=== PATIENT | male | born 1990 | race Caucasian/White ===

== ENCOUNTER 2020-09-18 14:43 | Outpatient (CLI) | payer BC, SELFPAY ==
--- NOTE | 2020-09-18 | XRR_ITS ---
PROCEDURE INFORMATION: Exam: XR Thoracic Spine Exam date and time: 09/18/2020 12:00 AM Age: 30 years old Clinical indication: Pain in thoracic spine; Additional info: Chronic back pain TECHNIQUE: Imaging protocol: XR of the thoracic spine. Views: 3 views. COMPARISON: No relevant prior studies available. FINDINGS: Bones/joints: There is mild dextrocurvature of the thoracic spine. The normal thoracic kyphosis is preserved. Vertebral body heights are well maintained. No fracture identified. There is mild degenerative changes, manifested by tiny endplate osteophytes. Soft tissues: Unremarkable. XR/XR thoracic spine 3V* [id number] IMPRESSION: 1. No acute injury. 2. Minimal degenerative changes of the thoracic spine.
--- NOTE | 2020-09-18 | XRR_ITS ---
PROCEDURE INFORMATION: Exam: XR Lumbosacral Spine Exam date and time: 09/18/2020 12:00 AM Age: 30 years old Clinical indication: Low back pain; Additional info: Chronic back pain TECHNIQUE: Imaging protocol: XR of the lumbosacral spine. Views: 2 or 3 views. COMPARISON: No relevant prior studies available. FINDINGS: Bones/joints: No spine curvature seen. The normal lumbar lordosis is maintained, without listhesis. No fracture identified. Vertebral body heights are well preserved. There is minimal degenerative changes of the spine, manifested by tiny endplate osteophytes and mild facet joint arthrosis in the lower lumbar spine. Soft tissues: Unremarkable. XR/XR lumbar spine 2-3V* [id number] IMPRESSION: 1. No acute injury. 2. Minimal degenerative changes of the lumbar spine.
== END 2020-09-18 14:44 | disposition home or self-care (01) ==
LOC: RAD 14:49
PROVIDERS: PCP Family Medicine; Visit Provider Family Medicine
DX: M54.5 Low back pain (principal)
CPT/HCPCS: 72072; 72100

== ENCOUNTER 2020-10-27 14:12 | Outpatient (CLI) | payer BC, SELFPAY ==
--- NOTE | 2020-10-27 15:15 | MR_ITS ---
WS: [id number] MRI LUMBAR SPINE NONCONTRAST TECHNIQUE: Sagittal T1, T2 and STIR imaging. Axial T1 and T2 imaging. CLINICAL INFORMATION: LBP COMPARISON: None. FINDINGS: Normal lumbar alignment. No acute compression. No high-grade central canal stenosis. Mild disc bulgin g L5-S1. L1-L2: Normal. L2-L3: Normal L3-L4: Mild annular bulging. No significant spinal canal or foraminal narrowing. Mild facet arthropat hy. L4-L5: Mild annular bulging with slight effacement of ventral thecal sac. Slight narrowing of the lef t subarticular recess. Mild facet arthropathy. Spinal canal and foramen are patent. L5-S1: Mild disc bulging eccentric to the right slightly impinges the traversing right S1 nerve root. Mild right and no significant left foraminal narrowing. Mild facet arthropathy. Spinal canal is zapata nt. Visualized pelvic bony structures: Normal. Paravertebral soft tissues: Normal. MR/MR lumbar spine wo con* [id number] IMPRESSION: 1. Normal lumbar alignment. No acute compression. No high-grade central canal stenosis. 2. Right eccentric disc bulging L5-S1 impinges the traversing right S1 nerve r oot in the subarticular recess. Correlation for right S1 nerve root symptoms. 3. Mild right L5-S1 foraminal narrowing with slight contact of the exiting rig ht L5 nerve root. 4. Minimal narrowing of the left subarticular recess L4-5. 5. Mild facet arthropathy L3-L5.
== END 2020-10-27 14:13 | disposition home or self-care (01) ==
PROVIDERS: PCP Family Medicine; Visit Provider Family Medicine
DX: M47.816 Spondylosis without myelopathy or radiculopathy, lumbar region (principal); M51.27 Other intervertebral disc displacement, lumbosacral region
CPT/HCPCS: 72148